=== PATIENT | male | born 1970 | race Two or more races ===

== ENCOUNTER 2020-03-22 08:35 | Outpatient (REF) | payer BC, SELFPAY ==
[2020-03-22 09:09] LABS: MANUAL DIFF FLAG NO
[2020-03-22 09:13] LABS: Basophils Percent Auto 0.6 % (0-2); Eosinophils Absolute Auto 0.3 X10*3/uL (0.0-0.4); Eosinophils Percent Auto 6.8 % (0-4); Hematocrit 44.5 % (42-52); Hemoglobin 14.5 g/dl (14.0-18.0); Imm Gran Abs Auto 0.01 X10*3/uL (0.00-0.03); Imm Gran Pct Auto 0.2 % (0.0-0.4); Lymphocytes Absolute Auto 1.5 X10*3/uL (1.2-4.9); Lymphocytes Percent Auto 30.8 % (20-40); Mean Corpuscular HGB Conc 32.6 g/dl (31.0-36.0); Mean Corpuscular Hemoglobin 27.2 pg (27.0-33.0); Mean Corpuscular Volume 83.3 fL (80-98); Mean Platelet Volume 9.9 fL (9.4-12.4); Monocytes Absolute Auto 0.4 X10*3/uL (0.1-1.2); Monocytes Percent Auto 7.4 % (2-11); Neutrophils Absolute Auto 2.7 X10*3/uL (2.0-8.3); Neutrophils Percent Auto 54.2 % (45-73); Platelet Count 253 X10*3/uL (160-400); Red Blood Count 5.34 X10*6/uL (4.60-5.80); Red Cell Distribution Width 12.9 % (11.0-16.0)
[2020-03-22 09:14] LABS: Glucose Urine UA NEG (NEG); Leukocyte Esterase Urine NEG (NEG); Nitrite Urine NEG (NEG); Specific Gravity - Urine 1.025 (1.005-1.025); Urine Blood NEG (NEG); Urine Ketones NEG (NEG); Urine Protein NEG (NEG-TRACE)
[2020-03-22 09:16] LABS: Appearance Urine CLEAR; Color Urine YELLOW
[2020-03-22 09:36] LABS: Alanine Aminotransferase 34 U/L (0-40); Albumin Level 4.1 g/dL (3.5-5.0); Alkaline Phosphatase 47 U/L (39-117); Anion Gap 10 (12-20); Aspartate Amino Transferase 40 U/L (5-37); Bilirubin Total 0.5 mg/dL (0.0-1.0); Blood Urea Nitrogen 27 mg/dL (9-16); Calcium 8.8 mg/dL (8.4-10.2); Carbon Dioxide 28 mmol/L (22-29); Chloride 104 mmol/L (96-108); Cholesterol 208 mg/dL; Estimated Glomerular Filt Rate 58; Glucose Fasting 95 mg/dL (60-99); HDL Cholesterol 72 mg/dL; LDL Cholesterol Calculated 118 mg/dl; Potassium 4.4 mmol/L (3.3-5.1); Sodium 138 mmol/L (135-145); Total Protein 7.2 g/dL (6.5-8.0); Triglycerides 90 mg/dL
[2020-03-22 09:57] LABS: TSH reflex Free T4 1.73 uIU/mL (0.32-4.0)
[2020-03-27 17:36] LABS: Testosterone, Total 667 ng/dL (250-1100)
== END 2020-03-22 08:36 | disposition home or self-care (01) ==
LOC: HO.LAB 08:35
PROVIDERS: PCP Internal Medicine; Visit Provider Internal Medicine
DX: Z00.00 Encounter for general adult medical examination without abnormal findings (principal); E78.00 Pure hypercholesterolemia, unspecified; R79.89 Other specified abnormal findings of blood chemistry; E66.3 Overweight; N52.9 Male erectile dysfunction, unspecified
CPT/HCPCS: 36415; 80053; 80061; 81003; 84153; 84403; 84443; 85025

== ENCOUNTER 2021-03-31 08:00 | Outpatient (REF) | payer BC, SELFPAY ==
[2021-03-31 08:33] LABS: MANUAL DIFF FLAG NO
[2021-03-31 09:04] LABS: Basophils Percent Auto 0.9 % (0-2); Eosinophils Absolute Auto 0.3 X10*3/uL (0.0-0.4); Eosinophils Percent Auto 6.2 % (0-4); Hematocrit 44.1 % (42.0-52.0); Hemoglobin 14.5 g/dl (14.0-18.0); Imm Gran Abs Auto 0.01 X10*3/uL (0.00-0.03); Imm Gran Pct Auto 0.2 % (0.0-0.4); Lymphocytes Absolute Auto 1.2 X10*3/uL (1.2-4.9); Lymphocytes Percent Auto 28.6 % (20-40); Mean Corpuscular HGB Conc 32.9 g/dl (31.0-36.0); Mean Corpuscular Hemoglobin 27.1 pg (27.0-33.0); Mean Corpuscular Volume 82.4 fL (80.0-98.0); Mean Platelet Volume 10.1 fL (9.4-12.4); Monocytes Absolute Auto 0.4 X10*3/uL (0.1-1.2); Monocytes Percent Auto 8.3 % (2-11); Neutrophils Absolute Auto 2.4 x10*3/uL (2.0-8.3); Neutrophils Percent Auto 55.8 % (45-73); Platelet Count 243 X10*3/uL (160-400); Red Blood Count 5.35 X10*6/uL (4.60-5.80); Red Cell Distribution Width 12.9 % (11.0-16.0); White Blood Count 4.3 X10*3/uL (4.8-10.8)
[2021-03-31 09:08] LABS: Appearance Urine CLEAR; Color Urine YELLOW; Glucose Urine UA NEG (NEG); Leukocyte Esterase Urine NEG (NEG); Nitrite Urine NEG (NEG); PH 5.5 (5.0-8.0); Specific Gravity - Urine >= 1.030 (1.005-1.025); Urine Blood NEG (NEG); Urine Ketones NEG (NEG); Urine Protein NEG (NEG-TRACE)
[2021-03-31 09:34] LABS: Alanine Aminotransferase 36 U/L (0-40); Albumin Level 4.2 g/dL (3.5-5.0); Alkaline Phosphatase 51 U/L (39-117); Anion Gap 11 (12-20); Aspartate Amino Transferase 41 U/L (5-37); Bilirubin Total 0.9 mg/dL (0.0-1.0); Blood Urea Nitrogen 22 mg/dL (9-16); Calcium 9.1 mg/dL (8.4-10.2); Carbon Dioxide 27 mmol/L (22-29); Chloride 104 mmol/L (96-108); Cholesterol 173 mg/dL; Estimated Glomerular Filt Rate 59; Glucose Fasting 90 mg/dL (60-99); HDL Cholesterol 63 mg/dL; LDL Cholesterol Calculated 98 mg/dl; Potassium 4.5 mmol/L (3.3-5.1); Sodium 137 mmol/L (135-145); Total Protein 7.4 g/dL (6.5-8.0); Triglycerides 61 mg/dL
[2021-03-31 09:55] LABS: Prostate Specific Antigen Scr 0.54 ng/mL (<0.05-4.0); TSH reflex Free T4 1.37 uIU/mL (0.32-4.0); Vitamin D 25-OH Total 48.8 ng/mL (>30)
== END 2021-03-31 08:01 | disposition home or self-care (01) ==
LOC: HO.LAB 08:00
PROVIDERS: PCP Internal Medicine; Visit Provider Internal Medicine
DX: Z00.00 Encounter for general adult medical examination without abnormal findings (principal); Z12.5 Encounter for screening for malignant neoplasm of prostate; E78.00 Pure hypercholesterolemia, unspecified; E66.3 Overweight; E55.9 Vitamin D deficiency, unspecified
CPT/HCPCS: 36415; 80053; 80061; 81003; 82306; 84153; 84443; 85025

== ENCOUNTER 2022-03-25 09:28 | Outpatient (REF) | payer BC, SELFPAY ==
[2022-03-25 09:40] LABS: MANUAL DIFF FLAG NO
[2022-03-25 10:05] LABS: Appearance Urine Clear; Color Urine Yellow; Glucose Urine UA Negative (Negative); Leukocyte Esterase Urine Negative (Negative); Nitrite Urine Negative (Negative); PH 7.5 (5.0-9.0); Urine Blood Negative (Negative); Urine Ketones Negative (Negative); Urine Protein Negative (Neg-Trace)
[2022-03-25 10:07] LABS: Basophils Absolute Auto 0.1 X10*3/uL (0.0-0.2); Eosinophils Absolute Auto 0.5 X10*3/uL (0.0-0.4); Eosinophils Percent Auto 8.6 % (0-4); Hematocrit 45.8 % (42.0-52.0); Hemoglobin 14.7 g/dl (14.0-18.0); Imm Gran Abs Auto 0.02 X10*3/uL (0.00-0.03); Imm Gran Pct Auto 0.3 % (0.0-0.4); Lymphocytes Absolute Auto 1.5 X10*3/uL (1.2-4.9); Lymphocytes Percent Auto 24.4 % (20-40); Mean Corpuscular HGB Conc 32.1 g/dl (31.0-36.0); Mean Corpuscular Hemoglobin 26.6 pg (27.0-33.0); Mean Platelet Volume 9.8 fL (9.4-12.4); Monocytes Absolute Auto 0.4 X10*3/uL (0.1-1.2); Monocytes Percent Auto 7.4 % (2-11); Neutrophils Absolute Auto 3.5 x10*3/uL (2.0-8.3); Neutrophils Percent Auto 58.3 % (45-73); Platelet Count 280 X10*3/uL (160-400); Red Blood Count 5.52 X10*6/uL (4.60-5.80); Red Cell Distribution Width 12.8 % (11.0-16.0); White Blood Count 5.9 X10*3/uL (4.8-10.8)
[2022-03-25 10:39] LABS: Alanine Aminotransferase 39 U/L (0-40); Albumin Level 4.1 g/dL (3.5-5.0); Alkaline Phosphatase 57 U/L (39-117); Anion Gap 11 (12-20); Aspartate Amino Transferase 38 U/L (5-37); Bilirubin Total 0.5 mg/dL (0.0-1.0); Blood Urea Nitrogen 21 mg/dL (9-16); Calcium 9.1 mg/dL (8.4-10.2); Carbon Dioxide 27 mmol/L (22-29); Chloride 104 mmol/L (96-108); Cholesterol 215 mg/dL; Estimated Glomerular Filt Rate > 60; Glucose Fasting 91 mg/dL (60-99); HDL Cholesterol 59 mg/dL; LDL Cholesterol Calculated 122 mg/dl; Potassium 4.6 mmol/L (3.3-5.1); Sodium 137 mmol/L (135-145); Total Protein 7.2 g/dL (6.5-8.0); Triglycerides 171 mg/dL
[2022-03-25 10:57] LABS: Prostate Specific Antigen 0.74 ng/mL (<0.05-4.0); TSH reflex Free T4 1.12 uIU/mL (0.32-4.0); Vitamin D 25-OH Total 40.9 ng/mL (>30)
== END 2022-03-25 09:29 | disposition home or self-care (01) ==
LOC: HO.LAB 09:28
PROVIDERS: PCP Internal Medicine; Visit Provider Internal Medicine
DX: Z00.00 Encounter for general adult medical examination without abnormal findings (principal); Z12.5 Encounter for screening for malignant neoplasm of prostate; R30.0 Dysuria; N40.0 Benign prostatic hyperplasia without lower urinary tract symptoms; E78.00 Pure hypercholesterolemia, unspecified; E55.9 Vitamin D deficiency, unspecified; R79.89 Other specified abnormal findings of blood chemistry
CPT/HCPCS: 36415; 80053; 80061; 81003; 82306; 84153; 84443; 85025

== ENCOUNTER → 2022-05-22 12:00 | Outpatient (BNVA) | payer BC, SELFPAY | PROVIDERS: PCP Internal Medicine; Visit Provider Nurse Practitioner | DX: Z13.89 Encounter for screening for other disorder (principal) ==

== ENCOUNTER 2022-05-25 16:03 | Emergency (ER) | payer BC, SELFPAY ==
--- NOTE | ~2022-05-25 | CT_ITS ---
EXAMINATION: CT HEAD WITHOUT CONTRAST CLINICAL INFORMATION: Ocular headaches COMPARISON: None available. TECHNIQUE: Contiguous axial imaging was performed from the skull base to vertex without intravenous administration of contrast. This CT examination was performed using dose optimization techniques as appropriate, variously including the following: *Automated exposure control *Adjustment of mA and/or kV according to patient size (this includes techniques or standardized protocols for targeted exams where dose is matched to indication/reason for exam; i.e. extremities or head) *Use of iterative reconstruction technique DLP: 633 mGy-cm FINDINGS: There is no evidence of acute intracranial hemorrhage or territorial infarction. No abnormal mass effect or midline shift is seen. Glaser to white matter differentiation is well preserved. No extra-axial fluid collections are identified. The ventricles are normal in size. No abnormal attenuation in the brain parenchyma. No acute calvarial fracture.. Complete right frontal sinus opacification.. Partial opacification left frontal sinus. Prominent opacification of the right greater than left ethmoid sinus. Right maxillary sinus mucosal thickening. Right sphenoid sinus mucosal thickening.. Mastoid air cells are well-aerated. CT/CT head/brain wo IV con IMPRESSION: No CT evidence of acute intracranial hemorrhage or edematous territorial infarction. Extensive sinus disease as detailed above.
--- NOTE | 2022-05-25 16:17 | ED_ITS ---
HPI - Headache General Chief Complaint: Headache <JOHNATHON Andrews - Last Filed: 05/25/22 16:21> Stated Complaint: migraine <JOHNATHON Andrews - Last Filed: 05/25/22 16:21> Time Seen by Provider: 05/25/22 20:30 <JOHNATHON Andrews - Last Filed: 05/25/22 16:21> Source: patient <Garima Reese MD - Last Filed: 05/25/22 22:36> Mode of arrival: ambulatory <Garima Reese MD - Last Filed: 05/25/22 22:36> Limitations: no limitations <Garima Reese MD - Last Filed: 05/25/22 22:36> History of Present Illness HPI Narrative: Patient comes to the emergency room complaining of right-sided headache intermittently for about a 3 weeks. Patient states that when he takes Excedrin, he does have pain relief, but shortly after the medication wears off, he starts having headaches again. Patient denies blurred vision, no neurological deficits. No nausea vomiting, no neck pain or rigidity. Denies recent URI symptoms <Garima Reese MD - Last Filed: 05/25/22 22:36> Related Data Home Medications: Home Medications Medication Instructions Recorded Confirmed [id number]-amikqotgnckgz-[id number] 250 1 tab PO Q4-6H PRN 05/22/22 mg-250 mg-65 mg tablet (Excedrin Extra Strength) Previous Rx's Medication Instructions Recorded peg 3350-electrolytes 236 240 ml PO Q10M 1 day #4,000 mL 05/22/22 gram-22.74 gram-6.74 gram-5.86 gram solution (Golytely) ketorolac 10 mg tablet 10 mg PO TID PRN pain 5 days #10 05/25/22 tabs metoclopramide HCl 5 mg tablet 5 mg PO .T.i.d. PRN nausea and 05/25/22 (Reglan) vomiting #10 tabs <JOHNATHON Andrews - Last Filed: 05/25/22 16:21> Allergies/Adverse Reactions: Allergies Allergy/AdvReac Type Severity Reaction Status Date / Time No Known Allergies Allergy Verified 05/22/22 12:34 <JOHNATHON Andrews - Last Filed: 05/25/22 16:21> Review of Systems Review of Systems: Constitutional : No Weight loss, No Fever, No Chills, No Night Sweats, No Fatigue, No Malaise ENT/Mouth : No Hearing loss, No Ear Pain, No Nasal Congestion, No Sinus Pain, No Hoarseness, No sore throat, No Rhinorrhea, No Swallowing Difficulty Eyes: No Eye Pain, No Swelling, No Redness, No Foreign Body, No Discharge, No Vision Changes Cardiovascular : No Chest Pain, No SOB, No Dyspnea on Exertion, No Orthopnea, No Edema, No Palpitations Respiratory : No Cough, No Sputum, No Wheezing, No Smoke Exposure, No Dyspnea Gastrointestinal : No Nausea, No Vomiting, No Diarrhea, No Constipation, No abdominal Pain, No Hematochezia, No Melena Genitourinary : no irregular bleeding, No Dysuria, No Urinary Frequency, No Hematuria, No Urinary Incontinence, No Urgency, No Flank Pain, No Urinary Flow Changes, No Hesitancy Musculoskeletal : No joint pain, No Myalgias, No Joint Swelling Skin : No Skin Lesions, No rash Neuro : No Weakness, No Numbness, No Paresthesias, No Loss of Consciousness, No Dizziness, blaming of intermittent headache for 3 weeks, responds well to Excedrin Psych : No Anxiety/Panic, No Depression, No SI/HI/AH/VH, No Social Issues, Heme/Lymph: No Bruising, No Bleeding,No Lymphadenopathy Endocrine : No Polyuria, No Polydipsia, No Temperature Intolerance <Garima Reese MD - Last Filed: 05/25/22 22:36> [facility] Past Medical History Medical History: Medical History Elevated LFTs Erectile dysfunction Insomnia Overweight (BMI 25.0-29.9) Pure hypercholesterolemia Vitamin D deficiency <JOHNATHON Andrews - Last Filed: 05/25/22 16:21> Surgical History: Surgical History No significant past surgical history <JOHNATHON Andrews - Last Filed: 05/25/22 16:21> Family History Family History: Family History Mother Hypertension <JOHNATHON Andrews - Last Filed: 05/25/22 16:21> Social History Social History: Social History Housing: House Alcohol intake: current Alcohol intake frequency: a few times a week Patient Tobacco Use Status: Never used Tobacco Smoked in Last 30 Days: No e-Cigarette/Vaping Use: Never Used Second Hand Smoke Exposure: No Use of substances other than those prescribed or required for medical reasons: No Advance Directives: No Advance Directives Information Provided: No service: No Current occupational status: employed Cognitive needs: No Hearing needs: No Vision needs: Yes <JOHNATHON Andrews - Last Filed: 05/25/22 16:21> Physical Exam Vital Signs: Vital Signs: Last Vital Signs Temp 97.8 F 05/25/22 21:59 Pulse 55 05/25/22 21:59 Resp 12 05/25/22 21:59 BP 122/48 L 05/25/22 21:59 Pulse Ox 97 05/25/22 21:59 O2 Del Method Room Air 05/25/22 21:59 BMI result Body Mass Index 26.6 <JOHANTHON Andrews - Last Filed: 05/25/22 16:21> Vital Signs: Last Vital Signs Temp 97.8 F 05/25/22 21:59 Pulse 55 05/25/22 21:59 Resp 12 05/25/22 21:59 BP 122/48 L 05/25/22 21:59 Pulse Ox 97 05/25/22 21:59 O2 Del Method Room Air 05/25/22 21:59 BMI result Body Mass Index 26.6 <Garima Reese MD - Last Filed: 05/25/22 22:36> Const: Other: Appearance: Alert. Oriented X3. No acute distress. Eyes: Pupils equal, round and reactive to light. ENT: Pharynx normal. Neck: Normal inspection. Neck supple. No lymph nodes noted. No crepitus CVS: Normal heart rate and rhythm. Pulses normal. Normal S1 and S2 Respiratory: No respiratory distress. Breath sounds normal. No Wheezing. No rales Abdomen: Soft and nontender. No rigidity. No distention. Skin: Skin warm and dry. Normal skin color. Normal skin turgor. Extremities: No lower extremity edema. No Lacerations. No Rash Neuro: Oriented X 3. No motor deficit. No sensory deficit. Moving all extremities. No slurred speech. CN 2 through 12 grossly intact Psych: calm, cooperative, normal affect <Garima Reese MD - Last Filed: 05/25/22 22:36> Course Course Course Narrative: RME - 51yo male with no known medical problems presenting for right-sided headaches for the past three weeks. Endorses vomiting, blurry vision. Stated he's been taking excedrin with mild relief for short periods of time. last time he took the excedrin was 1200 today. plan: CT <JOHNATHON Andrews - Last Filed: 05/25/22 16:21> Medications Administered Discontinued Medications Generic Name Dose Route Start Last Admin Trade Name Freq PRN Reason Stop Dose Admin Diphenhydramine HCl 25 mg 05/25/22 21:02 05/25/22 21:17 Diphenhydramine Hcl 50 Mg/Ml Vial IVPUSH 05/25/22 21:03 25 mg ONCE ONE Administration Sodium Chloride 1,000 mls @ 999 mls/hr 05/25/22 21:02 05/25/22 21:19 Ns IVCONT 05/25/22 22:02 999 mls/hr .Q1H1M ONE Administration Ketorolac Tromethamine 30 mg 05/25/22 21:02 05/25/22 21:18 Ketorolac Tromethamine 30 Mg/Ml Vial IVPUSH 05/25/22 21:03 30 mg ONCE ONE Administration Metoclopramide HCl 10 mg 05/25/22 21:03 05/25/22 21:17 Metoclopramide Hcl 10 Mg/2 Ml Vial IVPUSH 05/25/22 21:04 10 mg ONCE ONE Administration <JOHNATHON Andrews - Last Filed: 05/25/22 16:21> Medications Administered Discontinued Medications Generic Name Dose Route Start Last Admin Trade Name Freq PRN Reason Stop Dose Admin Diphenhydramine HCl 25 mg 05/25/22 21:02 05/25/22 21:17 Diphenhydramine Hcl 50 Mg/Ml Vial IVPUSH 05/25/22 21:03 25 mg ONCE ONE Administration Sodium Chloride 1,000 mls @ 999 mls/hr 05/25/22 21:02 05/25/22 21:19 Ns IVCONT 05/25/22 22:02 999 mls/hr .Q1H1M ONE Administration Ketorolac Tromethamine 30 mg 05/25/22 21:02 05/25/22 21:18 Ketorolac Tromethamine 30 Mg/Ml Vial IVPUSH 05/25/22 21:03 30 mg ONCE ONE Administration Metoclopramide HCl 10 mg 05/25/22 21:03 05/25/22 21:17 Metoclopramide Hcl 10 Mg/2 Ml Vial IVPUSH 05/25/22 21:04 10 mg ONCE ONE Administration <Garima Reese MD - Last Filed: 05/25/22 22:36> Medical Decision Making Medical Decision Making MDM Narrative: -my interpretation of head CT, no intracranial bleed, no obvious deformity/mass -patient receiving IV fluids, IV Toradol, Reglan, Benadryl After IV cocktail treatment, patient states that he feels well. He is in his room, watching TV and seems comfortable. <Garima Reese MD - Last Filed: 05/25/22 22:36> Differential Diagnosis Differential Diagnoses: The differential diagnosis associated with the presentation includes (Tension headache, migraine headache, ocular migraine) <Garima Reese MD - Last Filed: 05/25/22 22:36> Radiology Impression Discussion of test interpretation with radiology: I have reviewed the radiologist's reading. <Garima Reese MD - Last Filed: 05/25/22 22:36> Radiologist Impression: FINDINGS: There is no evidence of acute intracranial hemorrhage or territorial infarction. No abnormal mass effect or midline shift is seen. Glsaer to white matter differentiation is well preserved. No extra-axial fluid collections are identified. The ventricles are normal in size. No abnormal attenuation in the brain parenchyma. No acute calvarial fracture.. Complete right frontal sinus opacification.. Partial opacification left frontal sinus. Prominent opacification of the right greater than left ethmoid sinus. Right maxillary sinus mucosal thickening. Right sphenoid sinus mucosal thickening.. Mastoid air cells are well-aerated. ? CT/CT head/brain wo IV con IMPRESSION: No CT evidence of acute intracranial hemorrhage or edematous territorial infarction. <Garima Reese MD - Last Filed: 05/25/22 22:36> Discharge Plan Discharge Clinical Impression: Migraine <JOHNATHON Andrews - Last Filed: 05/25/22 16:21> Patient Disposition: Home, Self-Care <JOHNATHON Andrews - Last Filed: 05/25/22 16:21> Instructions: Migraine Headache (ED) <JOHNATHON Andrews - Last Filed: 05/25/22 16:21> Additional Instructions: Please follow-up with your primary care physician tomorrow. If you have any worsening or new symptoms, please return to the emergency room or call 911 <JOHNATHON Andrews - Last Filed: 05/25/22 16:21> Prescriptions: New ketorolac 10 mg tablet 10 mg PO TID PRN (Reason: pain) 5 Days Qty: 10 0RF Rx Instructions: Do not use this medication with NSAIDs, use Tylenol if needed metoclopramide HCl [Reglan] 5 mg tablet 5 mg PO .T.i.d. PRN (Reason: nausea and vomiting) Qty: 10 0RF Rx Instructions: Take together with Toradol p.r.n. migraine No Action peg 3350-electrolytes [Golytely] 236-22.74-6.74 -5.86 gram recon soln 240 ml PO Q10M 1 Days Qty: 4000 0RF Rx Instructions: until fecal effluent is clear; do not exceed a total volume of 2,000 mL Excedrin Extra Strength 250-250-65 mg tablet 1 tab PO Q4-6H PRN <JOHNATHON Andrews - Last Filed: 05/25/22 16:21>
[2022-05-25 16:18] VITALS: BP 161/99; PULSE 82; RESP 18; TEMP 36.7; O2SAT 97; BMI 26.6
--- NOTE | 2022-05-25 20:41 | PC.NURSE ---
Patient has been managing headache at home for the past few weeks with excedrine migraine. Patient states that the medication helps take the pain away but as soon as the medication wears off the headache is just as intense as it was prior. Patient states the he took his excedrine in the waiting room. Upon exam patient is alert and oriented able to move all extremities, patient denies dizziness at this time.
[2022-05-25 20:57] VITALS: BP 144/99; PULSE 72; RESP 16; TEMP 36.8; O2SAT 99
[2022-05-25] MEDS: diphenhydrAMINE HCL 50 MG/ML VIAL 25 MG IVPUSH (21:17)
[2022-05-25] MEDS: Metoclopramide HCl 10 MG/2 ML VIAL IVPUSH (21:17)
[2022-05-25] MEDS: Ketorolac Tromethamine 30 MG/ML VIAL IVPUSH (21:18)
[2022-05-25] MEDS: 0.9 % Sodium Chloride 1,000 ML 999 ML IVCONT (21:19)
--- NOTE | 2022-05-25 21:24 | PC.NURSE ---
20 G IV line placed in L AC, patient medicated per APR. Patient reports frontal headache is improving and rating it as 7/10 on 0/10 pain scale. Call allen within patient's reach. Patient's spouse in at bedside.
[2022-05-25 21:53] VITALS: BP 106/65; PULSE 57; RESP 16; TEMP 36.4; O2SAT 97
[2022-05-25 21:59] VITALS: BP 122/48; PULSE 55; RESP 12; TEMP 36.6; O2SAT 97
--- NOTE | 2022-05-25 23:41 | PC.NURSE ---
Reviewed discharge instruction with pt, pt verbalized understanding, Notified Rn Jahaira.
== END 2022-05-25 23:42 | disposition home or self-care (01) ==
PROVIDERS: Emergency Provider Emergency Medicine; PCP Internal Medicine
DX: G43.909 Migraine, unspecified, not intractable, without status migrainosus (principal)
CPT/HCPCS: 70450; 96374; 96375; 99284; J1200; J1885; J2765

== ENCOUNTER 2022-05-28 10:06 | Outpatient (REF) | payer BC, SELFPAY ==
[2022-05-28 10:17] LABS: MANUAL DIFF FLAG NO
[2022-05-28 10:49] LABS: Basophils Percent Auto 0.7 % (0-2); Eosinophils Absolute Auto 0.3 X10*3/uL (0.0-0.4); Eosinophils Percent Auto 4.4 % (0-4); Hematocrit 42.8 % (42.0-52.0); Imm Gran Abs Auto 0.01 X10*3/uL (0.00-0.03); Imm Gran Pct Auto 0.2 % (0.0-0.4); Lymphocytes Absolute Auto 1.3 X10*3/uL (1.2-4.9); Lymphocytes Percent Auto 21.8 % (20-40); Mean Corpuscular HGB Conc 32.7 g/dl (31.0-36.0); Mean Corpuscular Hemoglobin 27.1 pg (27.0-33.0); Mean Corpuscular Volume 82.8 fL (80.0-98.0); Mean Platelet Volume 9.6 fL (9.4-12.4); Monocytes Absolute Auto 0.5 X10*3/uL (0.1-1.2); Monocytes Percent Auto 7.7 % (2-11); Neutrophils Absolute Auto 3.8 x10*3/uL (2.0-8.3); Neutrophils Percent Auto 65.2 % (45-73); Platelet Count 309 X10*3/uL (160-400); Red Blood Count 5.17 X10*6/uL (4.60-5.80); Red Cell Distribution Width 12.8 % (11.0-16.0); White Blood Count 5.9 X10*3/uL (4.8-10.8)
[2022-05-28 11:30] LABS: Alanine Aminotransferase 32 U/L (0-40); Alkaline Phosphatase 58 U/L (39-117); Anion Gap 10 (12-20); Aspartate Amino Transferase 30 U/L (5-37); Bilirubin Total 0.8 mg/dL (0.0-1.0); Blood Urea Nitrogen 19 mg/dL (9-16); Calcium 9.3 mg/dL (8.4-10.2); Carbon Dioxide 29 mmol/L (22-29); Chloride 105 mmol/L (96-108); Estimated Glomerular Filt Rate 59; Glucose Random 93 mg/dL (60-115); Potassium 4.9 mmol/L (3.3-5.1); Sodium 139 mmol/L (135-145); Total Protein 6.9 g/dL (6.5-8.0)
[2022-05-28 11:32] LABS: TSH reflex Free T4 1.43 uIU/mL (0.32-4.0)
[2022-05-28 11:47] LABS: Erythrocyte Sedimentation Rate 6 MM/HR (0-15)
[2022-06-02 06:08] LABS: Lyme Blot 1.83 index
[2022-06-03 11:33] LABS: Lyme Abs Screen POSITIVE
[2022-06-03 11:35] LABS: 18 KD (IgG) Band REACTIVE; 23 KD (IgG) Band NON-REACTIVE; 23 KD (IgM) Band NON-REACTIVE; 28 KD (IgG) Band NON-REACTIVE; 30 KD (IgG) Band NON-REACTIVE; 39 KD (IgM) Band NON-REACTIVE; 39KD (IgG) Band NON-REACTIVE; 41 KD (IgM) Band NON-REACTIVE; 41KD (IgG) Band NON-REACTIVE; 45 KD (IgG) Band NON-REACTIVE; 58 KD (IgG) Band NON-REACTIVE; 66 KD (IgG) Band NON-REACTIVE; 93 KD (IgG) Band NON-REACTIVE; Lyme IgG Blot Interp NEGATIVE (NEGATIVE); Lyme IgM Blot Interp NEGATIVE (NEGATIVE)
== END 2022-05-28 10:07 | disposition home or self-care (01) ==
LOC: HO.LAB 10:06
PROVIDERS: PCP Internal Medicine; Visit Provider Internal Medicine
DX: G89.29 Other chronic pain (principal); R51.9 Headache, unspecified; E66.3 Overweight; E78.5 Hyperlipidemia, unspecified
CPT/HCPCS: 36415; 80053; 84443; 85025; 85652; 86617; 86618

== ENCOUNTER 2022-09-22 09:50 | Outpatient (AMB) | payer BC, SELFPAY ==
[2022-09-22 09:52] VITALS: BP 122/80; PULSE 74; O2SAT 98; BMI 26.2
--- NOTE | 2022-09-22 09:52 | MHC.PC.OV ---
Vital Signs 09/22/22 09:52 Height 5 ft 9 in Weight 177 lb 8 oz BMI 26.2 BP 122/80 Blood Pressure Location Lt brachial Position Sitting Pulse 74 Pulse Source Pulse Oximeter Pulse Oximetry (%) 98 Oxygen Delivery Method Room Air Intake Visit Reasons: 6m F/U elevated LFTs, hyperlipidemia Shipping And Receiving Coordinator Required: No Accompanied by: Self / Same As Patient Allergies No Known Allergies Allergy (Verified 09/22/22 10:12) Medication List - Last Reconciled 09/22/22 by David Haas MD amitriptyline 25 mg PO BEDTIME 30 days rxnsjky-pniqncnhmwlbl-fnblrjyq 250-250-65 mg (Excedrin Extra Strength) 1 tab PO Q4-6H PRN ketorolac 10 mg PO TID PRN 5 days metoclopramide HCl (Reglan) 5 mg PO .T.i.d. PRN peg 3350-electrolytes 236-22.74-6.74 -5.86 gram (Golytely) 240 mL PO Q10M 1 day Tobacco use date assessed: 09/22/22 Dental Screening Dental Screen Date: 09/22/22 Did you have a dental visit in the last 12 months?: No Did you have a dental problem in the last 6 months where you did not have access to dental care?: No Was dental information given to patient?: No HPI 6m F/U elevated LFTs, hyperlipidemia HPI Details Patient comes in today for his follow up visit States that he feels okay He denies any headaches or dizziness - states that his previous recurrent right-sided headaches have subsided and have not recurred in a while now He denies any chest pains, no SOB No nausea/vomiting, no abdominal pain No change in bowel habits noted Was not able to get his follow up labs done prior to his visit today although he recalls getting some labs done the day after his last visit - would like to know how those came out Would like to get some labs ordered for STD testing - he denies any penile discharge or acute symptoms Adds that he has noticed a dark skin lesion near the tip of his genital a few weeks ago and would like to see dermatology to get this checked out for concerns that it may be a cancerous lesion [facility] Medical History Elevated LFTs Erectile dysfunction Insomnia Overweight (BMI 25.0-29.9) Pure hypercholesterolemia Vitamin D deficiency Surgical History No significant past surgical history Family History Mother Hypertension Social History Housing: House Alcohol intake: current Alcohol intake frequency: a few times a week Patient Tobacco Use Status: Never used Tobacco e-Cigarette/Vaping Use: Never Used Second Hand Smoke Exposure: No service: No Current occupational status: employed Cognitive needs: No Hearing needs: No Vision needs: Yes Questionnaire PHQ-9 Over the last 2 weeks, how often have you been bothered by any of the following problems? 1. Little interest or pleasure in doing things: not at all 2. Feeling down, depressed, or hopeless: not at all 3. Trouble falling or staying asleep, or sleeping too much: not at all 4. Feeling tired or having little energy: not at all 5. Poor appetite or overeating: not at all 6. Feeling bad about yourself - or that you are a failure or have let yourself or your family down: not at all 7. Trouble concentrating on things, such as reading the newspaper or watching television: not at all 8. Moving or speaking so slowly that other people could have noticed. Or the opposite - being so fidgety or restless that you have been moving around a lot more than usual: not at all 9. Thoughts that you would be better off or of hurting yourself in some way: not at all Total score: 0 Depression Screening Interpretation: Negative 36767 - PHQ-9 Billing: Yes Source: Developed by Drs. Marcello Giraldo, Zoya Casas, Jose Maria Calderon and colleagues, with an educational angelika from [employer]. Thrive Questionnaire Date Thrive assessed: 09/22/22 I am a: Patient What is your living situation today?: I have a steady place to live Within the past 12 months, did the food you bought not last and you didn't have the money to get more?: Never true Within the past 12 months, did you worry whether your food would run out before you got money to buy more?: Never true Do you have trouble paying for medicines?: No Do you have trouble getting transportation to medical appointments?: No Do you have trouble paying your heating and electricity bill?: No Do you have trouble taking care of your child, family member or friend?: No Do you have trouble with day-to-day activities such as bathing, preparing meals, shopping, managing finances, etc.?: No Are you currently unemployed and looking for a job?: No Are you interested in more education?: No Please select the resources that you would like help with: None Currently or been in a relationship where the following occur: no concerns reported AUDIT C Alcohol Use Questionnaire (AUDIT-C) 1. How often do you have a drink containing alcohol?: 2-4 times a month 2. How many drinks containing alcohol do you have on a typical day when you are drinking?: 1 or 2 3. How often do you have six or more drinks on one occasion?: Never Total Score: 2 Score Reviewed/Action Taken: Yes LYDIA-7 AMB Questionnaire LYDIA-7 Date LYDIA - 7 assessed: 09/22/22 Feeling nervous, anxious, or on edge: 0 = Not at all Not being able to stop or control worryin = Not at all Worrying too much about different things: 0 = Not at all Trouble relaxin = Not at all Being so restless that it is hard to sit still: 0 = Not at all Becoming easily annoyed or irritable: 0 = Not at all Feeling afraid as if something awful might happen: 0 = Not at all Total LYDIA-7 score (0-4 normal; 5-9 mild; 10-14 moderate; 15-21 severe): 0 Source: Developed by Drs. Marcello Giraldo, Zoya Casas, Jose Maria Calderon and colleagues, with an educational angelika from [employer]. Review of Systems Const Denies fatigue, Denies fever(s) and Denies headache(s) ENT Denies dysphagia, Denies dizziness, Denies otalgia, Denies headache(s), Denies neck pain, Denies odynophagia and Denies sore throat Card Denies chest pain, Denies irregular heart rhythm, Denies palpitations and Denies dyspnea Resp Denies cough, Denies dyspnea and Denies wheezing GI Denies abdominal pain, Denies constipation, Denies dysphagia, Denies heartburn, Denies diarrhea, Denies nausea, Denies odynophagia and Denies vomiting Denies dysuria, Denies nocturia, Denies penile discharge, Denies urinary frequency and Denies urinary urgency Musc Denies back pain, Denies arthralgias and Denies neck pain Skin/Breast Details: (+) small dark skin lesion on his genital - see HPI Denies rash Neuro Denies dizziness, Denies headache(s) and Denies paresthesias Endo Denies fatigue and Denies palpitations Aller/Immun Denies wheezing Physical exam (Primary Care) Vital Signs: Last Vital Signs Pulse 74 09/22/22 09:52 BP 122/80 09/22/22 09:52 Pulse Ox 98 09/22/22 09:52 Oxygen Delivery Method Room Air 09/22/22 09:52 BMI result Body Mass Index 26.2 Tobacco/Smoking Status: Tobacco use Status Tobacco use date assessed 09/22/22 09/22/22 09:59 Patient Tobacco Use Status Never used Tobacco 09/22/22 09:59 e-Cigarette/Vaping Use Never Used 09/22/22 09:59 PHQ-9: PHQ-9 Score PHQ-9: Total score 0 09/22/22 09:59 Depression Screening Interpretation: Negative Thrive Assessment: Date of Thrive Assessment Date Thrive assessed 09/22/22 09/22/22 09:59 Currently or been in a relationship where the following occur: no concerns reported Const General: no acute distress and alert HENMT Ears: TM's normal bilaterally and EAC's normal Throat: Yes posterior oropharynx normal and Yes tonsils normal (no TP congestion) Neck Neck: Yes no lymphadenopathy and Yes supple Resp Auscultation: clear to auscultation bilaterally, no rales and no wheezes Cardio Rate: regular rate Rhythm: regular rhythm Heart sounds: no murmurs GI Palpation (GI): Soft to palpation, nontender and No hepatosplenomegaly present Other: (+) small hyperpigmented, flat lesion near the glans penis Back/Spine/Pelvis Thoracic/Lumbar Spine: thoracic and lumbar spine normal to inspection Skin General skin exam: no rashes or lesions noted Extrem General: Yes no clubbing, cyanosis or edema Results Reviewed Results Reviewed: Laboratory Tests 05/28/22 05/28/22 10:16 10:16 WBC 5.9 Hgb 14.0 Hct 42.8 Plt Count 309 Sodium 139 Potassium 4.9 Creatinine 1.28 Estimated GFR 59 Random Glucose 93 Calcium 9.3 AST 30 ALT 32 Assessment and Plan Assessment & Plan (1) Pure hypercholesterolemia: Code(s): E78.00 - Pure hypercholesterolemia, unspecified Plan: Results of his labs done a few months ago reviewed and discussed with patient - advised that his labs done back in May 2022 were non-fasting and did not include his cholesterol levels although his numbers abck in March 2022 were much higher than they were last year Reinforced low cholesterol diet - low cholesterol diet info provided Will have patient recheck his fasting lipids and labs in 4 months for follow up (2) Elevated LFTs: Code(s): R79.89 - Other specified abnormal findings of blood chemistry Plan: LFTs (serum AST) were still slightly elevated on his labs done last year and in March 2022 but were normal on his labs done in May 2022 - are most likely related to his weight Will recheck his LFTs in 4 months for follow up (3) Chronic right-sided headaches: Code(s): R51.9 - Headache, unspecified; G89.29 - Other chronic pain Plan: Better controlled lately Continue Amitriptyline 25 mg Q HS and OTC Excedrin PRN Follow up with neurology as scheduled (4) Hyperpigmented skin lesion: Comment: on the genital area Code(s): L81.9 - Disorder of pigmentation, unspecified Plan: Per request, will refer him to dermatology for further evaluation and management (5) Possible exposure to STD: Code(s): Z20.2 - Contact with and (suspected) exposure to infections with a predominantly sexual mode of transmission Plan: Per request, will send patient to the lab for STD testing (6) Overweight (BMI 25.0-29.9): Code(s): E66.3 - Overweight Plan: Reinforced diet/exercise as tolerated/lose weight Plan Follow up in 4 months Orders: Orders Hepatitis B,C Profile Today Z20.2 - Contact with and (suspected) exposure to infections with a predominantly sexual mode of transmission HIV Ab/Ag Today Z20.2 - Contact with and (suspected) exposure to infections with a predominantly sexual mode of transmission Syphilis Screen Today Z20.2 - Contact with and (suspected) exposure to infections with a predominantly sexual mode of transmission Comprehensive [place]. Panel Fast 4 Months E78.00 - Pure hypercholesterolemia, unspecified Lipid Panel 4 Months E78.00 - Pure hypercholesterolemia, unspecified TSH reflex Free T4 4 Months E78.00 - Pure hypercholesterolemia, unspecified UA CC w/rflx Micro + Cult 4 Months R30.0 - Dysuria CT NG by PCR Today Z20.2 - Contact with and (suspected) exposure to infections with a predominantly sexual mode of transmission Referrals Dermatology Referral L81.9 - Disorder of pigmentation, unspecified Coding Level of Care Code Est Pt Level 4 (75481) Diagnoses Pure hypercholesterolemia E78.00 Elevated LFTs R79.89 Chronic right-sided headaches R51.9; G89.29 Hyperpigmented skin lesion L81.9 Possible exposure to STD Z20.2 Overweight (BMI 25.0-29.9) E66.3
== END 2022-09-22 10:26 | disposition home or self-care (01) ==
PROVIDERS: PCP Internal Medicine; Visit Provider Internal Medicine
DX: E78.00 Pure hypercholesterolemia, unspecified (principal); R79.89 Other specified abnormal findings of blood chemistry; R51.9 Headache, unspecified; G89.29 Other chronic pain; L81.9 Disorder of pigmentation, unspecified; Z20.2 Contact with and (suspected) exposure to infections with a predominantly sexual mode of transmission; E66.3 Overweight
CPT/HCPCS: 99214

== ENCOUNTER 2022-12-21 10:58 | Day surgery (SDC) | payer BC, SELFPAY ==
[2022-12-21 11:07] VITALS: BMI 26.7
[2022-12-21] MEDS: Lactated Ringers 1,000 ML 50 ML IVCONT (11:22)
[2022-12-21 11:29] VITALS: BP 128/85; PULSE 79; RESP 18; TEMP 36.7; O2SAT 99
--- NOTE | 2022-12-21 11:32 | HO.ANESPROP2 ---
[facility] Active Problems Active Problems: All Active Problems (Updated 09/22/22 @ 10:36 by David Haas MD) Possible exposure to STD (Acute) Hyperpigmented skin lesion (Acute) Pre-op examination (Acute) Chronic right-sided headaches (Acute) Colon cancer screening (Acute) Annual physical exam (Acute) Insomnia (Acute) Overweight (BMI 25.0-29.9) (Acute) Vitamin D deficiency (Acute) Elevated LFTs (Acute) Pure hypercholesterolemia (Acute) Erectile dysfunction (Acute) Past Medical History Medical History Elevated LFTs Erectile dysfunction Insomnia Overweight (BMI 25.0-29.9) Pure hypercholesterolemia Vitamin D deficiency Family History Family History Mother Hypertension Family history of problems with anesthesia: No Surgical History Surgical History No significant past surgical history History of Problems with Anesthesia: No Social History Social History Housing: House Alcohol intake: current Alcohol intake frequency: a few times a week Patient Tobacco Use Status: Never used Tobacco e-Cigarette/Vaping Use: Never Used Second Hand Smoke Exposure: No Are you DNR?: No Advance Directives: No Advance Directives Information Provided: Yes Nutrition Risks: No Nutritional Risk service: No Current occupational status: employed Cognitive needs: No Hearing needs: No Vision needs: Yes Meds Allergies Allergy/AdvReac Type Severity Reaction Status Date / Time No Known Allergies Allergy Verified 12/21/22 11:29 Active Medications: Current Medications Lactated Ringer's (Lr) 1,000 mls @ 50 mls/hr IVCONT .Q20H MEGHANN Last Admin: 12/21/22 11:22 Dose: 50 mls/hr Lactated Ringer's (Lr) 1,000 mls @ 50 mls/hr IVCONT .Q20H MEGHANN Home Medications Medication Instructions Recorded Confirmed Last Taken Type No Known Home Meds 12/21/22 12/21/22 Unknown History Exam Exam Date and Time: December 21, 2022 1132 Height,Weight and Vital Signs: Height 5 ft 9 in Weight 82.1 kg Last Vital Signs Temp 98.0 F 12/21/22 11:29 Pulse 79 12/21/22 11:29 Resp 18 12/21/22 11:29 BP 128/85 12/21/22 11:29 Pulse Ox 99 12/21/22 11:29 O2 Del Method Room Air 12/21/22 11:29 Airway Mallampati Class: II (missing a couple ) TM Dist: >3cm Neck ROM: Full Heart: rrr Lungs: cta Assessment and Plan Assessment Anesthesia Assessment: Anesthesia Plan Discussed and Chart Reviewed Final Anesthetic Review Family History of Problems with Anesthesia: No History of Problems with Anesthesia: No NPO: Yes ASA Class: II Final Preanesthetic Review: No Changes in Pt Med Stat, Meds/Allgs Chart Reviewed and Consent Obtained/Reviewed Patient Risk: Intermediate Procedure Risk: Intermediate Anesthetic Plan Anesthetic Plan: MAC: Disposition: Standard PACU
--- NOTE | 2022-12-21 11:40 | MHC.SHP ---
Pre-Procedural Eval Section A Date of Service: 12/21/22 Section B Chief Complaint: screening Relevant Family History (Specify if Yes): No Relevant Social History: None Present Medications: see Short Stay Collaborative assessment Medical History: Significant History (Elevated LFTs Erectile dysfunction Insomnia Overweight (BMI 25.0-29.9) Pure hypercholesterolemia Vitamin D deficiency) History of Previous Operations: No relevant previous surgery Allergies: Allergies Allergy/AdvReac Type Severity Reaction Status Date / Time No Known Allergies Allergy Verified 12/21/22 11:29 Review of Systems Sugical H&P ROS: Negative: Constitution, Cardiovascular, Respiratory and Gastrointestinal Exam Surgical H&P Exam: Normal: Heart, Normal: Lungs, Normal: Extremities and Normal: Abdomen Plan Diagnosis/Plan: Unchanged I have reviewed the history and physical and performed a pertinent physical examination on my patient. No changes have occurred unless specified. Time Spent With Patient Time: Total time managing care of this patient today ____ minutes.
--- NOTE | 2022-12-21 12:46 | W.PM.OPN ---
Operative Note Operative Note Date of Service: 12/21/22 Narrative: COLONOSCOPY TILL CECUM WITH BIOPSIES Pre-op diagnosis: Colon cancer screening (1st colonoscopy) Post-op diagnosis:? Colon polyp, diverticulosis, hemorrhoids Endoscopist:? Armida Barker MD Anesthesia:?MAC Consent: Indications for the procedure and potential complications of bleeding, perforation, reaction to medications and missed diagnosis were discussed with the patient and informed consent was obtained. Instrument: Olympus PCF H 190 L variable stiffness pediatric colonoscope Monitoring: Vital signs and clinical assessment, intermittent blood pressure monitoring, continuous EKG monitoring, Pulse oximetry and Carbon Dioxide monitoring were done throughout the procedure. Please see anesthesia flowsheet. Colon withdrawl time was 17 minutes. Procedure: The patient was placed in the left lateral decubitis position and pre-procedure medications were administered. After a digital rectal examination of the ano-rectum, the video colonoscope was inserted into the rectum and advanced through the colon to the cecum. The colonoscope was slowly withdrawn in a retrograde panoramic fashion and the colon mucosa was carefully examined including a retroflexed view of the rectum. Findings and interventions are described below. Procedure Difficulty: Colon was long and tortuous and there was some loop formation. Findings: Terminal Ileum: Not evaluated Cecum: Normal Ascending Colon: Normal Transverse Colon: Normal Descending Colon: Normal Sigmoid Colon: A 2-3 mm diminutive appearing polyp -removed with cold biopsy Moderate diverticulosis Rectum: Normal Ano-rectum: Moderate internal hemorrhoids Colon preparation: Good Impression and Post Procedure Diagnosis: Colonoscopy Findings: One small polyp removed Moderate diverticulosis seen in the sigmoid colon Moderate hemorrhoids on retroflexed exam. Plan: Await pathology results Patient has an appointment on 01/05/23 in the GI Clinic with Dariana Yoon NP . Repeat Colonoscopy interval based on path results - in 5 years if polyps are adenomatous and 10 years if polyps are hyperplastic. (adult colonoscopy for future colonoscopies) Above findings were reviewed with the patient and colon polyps and diverticulosis handouts were given in the discharge area
[2022-12-21 13:27] VITALS: BP 101/69; PULSE 81; RESP 16; TEMP 36.8; O2SAT 97
[2022-12-21 13:40] VITALS: BP 99/63; PULSE 78; RESP 16; TEMP 36.4; O2SAT 98
== END 2022-12-21 14:00 | disposition home or self-care (01) ==
PROVIDERS: PCP Internal Medicine; Visit Provider Internal Medicine Gastroenterology
PROC: 0DJD8ZZ Inspection of Lower Intestinal Tract, Via Natural or Artificial Opening Endoscopic (ICD-10-PCS; CPT 45378; principal; 2022-12-21 13:30)
DX: Z12.11 Encounter for screening for malignant neoplasm of colon (principal); K63.5 Polyp of colon; K56.2 Volvulus; K57.30 Diverticulosis of large intestine without perforation or abscess without bleeding; K64.8 Other hemorrhoids; E78.00 Pure hypercholesterolemia, unspecified; R79.89 Other specified abnormal findings of blood chemistry; G47.00 Insomnia, unspecified
CPT/HCPCS: 45380; 88305; J2704

== ENCOUNTER → 2022-12-21 10:58 | Outpatient (BNV) | payer BC, SELFPAY | PROVIDERS: PCP Internal Medicine; Visit Provider Internal Medicine Gastroenterology | DX: Z12.11 Encounter for screening for malignant neoplasm of colon (principal); D12.5 Benign neoplasm of sigmoid colon; K57.30 Diverticulosis of large intestine without perforation or abscess without bleeding; K64.8 Other hemorrhoids | CPT/HCPCS: 45380 ==

== ENCOUNTER 2023-01-05 10:41 | Outpatient (AMB) | payer BC, SELFPAY ==
--- NOTE | 2023-01-05 10:43 | A.OFFVIS_ITS ---
Intake Vital Signs 01/05/23 11:08 Height 5 ft 9 in Weight 178 lb 2.136 oz BMI 26.3 BP 117/80 Blood Pressure Location Lt brachial Position Sitting Pulse 66 Intake Visit Reasons: s/p colon Mj Intake Note: Patient presents to in office visit today in colonoscopy follow up. CC: Patient underwent colonoscopy on 12/[address] Barker. Reports doing well denies any concerns today. Allergies No Known Allergies Allergy (Verified 01/05/23 11:10) HPI s/p colon Mj HPI Details Assessment & Plan (1) Pre-op examination: Code(s): Z01.818 - Encounter for other preprocedural examination Plan: This is his first colonoscopy He denies any bowel or upper GI problems. He is naive to anesthesia and sedation. He denies any cardiac or respiratory problems. No ID problems. His father had some sort of stomach cancer, he is unsure of the site. (2) Colon cancer screening: Code(s): Z12.11 - Encounter for screening for malignant neoplasm of colon Medications: New peg 3350-electroly gloria 236-22.74-6.74 -5.86 gram (Golyt rafael) until feca l effluent is tomy r; do not exceed a total volume of 2 ,000 mL 240 mL PO Q10M 4,0 00 mL 0RF 1 day Z12.11 - Encounter for screening for malignant neoplas m of colon COLONOSCOPY 12/21/22 Findings: Terminal Ileum: Not evaluated Cecum: Normal Ascending Colon: Normal Transverse Colon: Normal Descending Colon: Normal Sigmoid Colon: A 2-3 mm diminutive appearing polyp -removed with cold biopsy Moderate diverticulosis Rectum: Normal Ano-rectum: Moderate internal hemorrhoids Colon preparation: Good Impression and Post Procedure Diagnosis: Colonoscopy Findings: One small polyp removed Moderate diverticulosis seen in the sigmoid colon Moderate hemorrhoids on retroflexed exam. Plan: Await pathology results Patient has an appointment on 01/05/23 in the GI Clinic with Dariana Yoon NP . Repeat Colonoscopy interval based on path results - in 5 years if polyps are adenomatous and 10 years if polyps are hyperplastic. BIOPSY Received: 12/21/22 Diagnosis Colon, sigmoid, polypectomy: Colonic mucosa with mild surface hyperplastic changes; multiple additional levels examined TODAY'S VISIT Since the polyp was hyperplastic so the procedure will be repeated in 10 years. The procedure was well tolerated. The results were explained and the patient is agreeable to the follow-up interval as stated. The bowel pattern has returned to normal. Education was provided to tell any 1st degree relatives about their findings to be sure that they are screened by age 45. Educated that they will be put on a recall list when it is time for their repeat scope but should they move out of state or away from the hospital they will need to remember along with their primary to repeat the procedure in a timely fashion to avoid any adverse complications. [facility] Medical History Insomnia Overweight (BMI 25.0-29.9) Vitamin D deficiency Elevated LFTs Pure hypercholesterolemia Erectile dysfunction Surgical History (Updated 01/05/23 @ 11:11 by DMAIAN Hale) H/O colonoscopy Family History Mother Hypertension Social History Housing: House Alcohol intake: current Alcohol intake frequency: a few times a week Patient Tobacco Use Status: Never used Tobacco e-Cigarette/Vaping Use: Never Used Second Hand Smoke Exposure: No service: No Current occupational status: employed Cognitive needs: No Hearing needs: No Vision needs: Yes Review of Systems Const Denies fatigue, Denies fever(s), Denies night sweats, Denies poor appetite and Denies weight loss ENT Reports Normal hearing present, Denies dental pain, Denies dysphagia, Denies hearing loss, Denies mouth pain, Denies odynophagia, Denies throat swelling, Denies tongue swelling and Reports other (Dentition adequate) Card Reports no additional complaints Resp Reports no additional complaints GI Denies abdominal pain, Denies melena, Denies bloating, Denies hematochezia, Denies constipation, Denies GI cramping, Denies dysphagia, Denies excessive flatus, Denies early satiety, Denies heartburn, Denies diarrhea, Denies nausea, Denies odynophagia, Denies vomiting and Denies hematemesis Skin/Breast Denies pruritus, Denies lesions, Denies rash and Denies jaundice Neuro Reports Normal hearing present and Denies Abnormal speech present Endo Denies fatigue Aller/Immun Denies throat swelling and Denies tongue swelling Physical Exam Vital Signs: Last Vital Signs Pulse 66 01/05/23 11:08 BP 117/80 01/05/23 11:08 BMI result Body Mass Index 26.3 Const General: cooperative, no acute distress, well developed and well groomed Nutritional Appearance: average body habitus and well nourished Orientation/consciousness: oriented to person, oriented to place and oriented to time Limitations: No language barrier HEENT Head: Yes normocephalic and Yes atraumatic Eyes General: appearance normal, both eyes and all related structures Pupils: Equal, round and reactive pupils present Neck Neck: Yes normal visual inspection and Yes no lymphadenopathy Thyroid: Thyroid normal Resp Effort & Inspection: normal respiratory effort and able to speak in complete sentences Auscultation: clear to auscultation bilaterally Cardio Rate: regular rate Rhythm: regular rhythm Heart sounds: Normal, physiologic split S2 sound present Peripheral pulses: radial pulses present and posterior tibial pulses present GI Inspection: No distended and No Abdominal panniculus present Palpation (GI): Soft to palpation, nontender, no guarding, not rigid and No hepatosplenomegaly present Percussion: Yes normal to percussion Auscultation: normal bowel sounds Rectal Exam - Male: Yes deferred Skin General skin exam: no rashes or lesions noted, turgor normal, skin not dry, no jaundice, No spider nevi and no striae Rashes: no rashes Nails: normal Neuro General: oriented to person, oriented to place and oriented to time Cranial nerves: Yes Equal, round and reactive pupils present and Yes Normal hearing present Speech: No Abnormal speech present Extrem General: Yes normal to inspection, No clubbing, No cyanosis and No edema Psych Appearance: grossly normal and well kempt Mental Status: mental status grossly normal Speech and movement: Normal speech and movement present Affect: normal affect Attitude: cooperative Thought process: Normal thought process present and not confabulating Thought content: Normal thought content present Insight: Fair insight present (Psych) Judgement: Fair judgement present (Psych) Results Reviewed Results Reviewed: COLONOSCOPY 12/21/22 Findings: Terminal Ileum: Not evaluated Cecum: Normal Ascending Colon: Normal Transverse Colon: Normal Descending Colon: Normal Sigmoid Colon: A 2-3 mm diminutive appearing polyp -removed with cold biopsy Moderate diverticulosis Rectum: Normal Ano-rectum: Moderate internal hemorrhoids Colon preparation: Good Impression and Post Procedure Diagnosis: Colonoscopy Findings: One small polyp removed Moderate diverticulosis seen in the sigmoid colon Moderate hemorrhoids on retroflexed exam. Plan: Await pathology results Patient has an appointment on 01/05/23 in the GI Clinic with Dariana Yoon NP . Repeat Colonoscopy interval based on path results - in 5 years if polyps are adenomatous and 10 years if polyps are hyperplastic. BIOPSY Received: 12/21/22 Diagnosis Colon, sigmoid, polypectomy: Colonic mucosa with mild surface hyperplastic changes; multiple additional levels examined Assessment & Plan Assessment & Plan (1) Colon cancer screening: Code(s): Z12.11 - Encounter for screening for malignant neoplasm of colon Plan Since the polyp was hyperplastic so the procedure will be repeated in 10 years. The procedure was well tolerated. The results were explained and the patient is agreeable to the follow-up interval as stated. The bowel pattern has returned to normal. Education was provided to tell any 1st degree relatives about their findings to be sure that they are screened by age 45. Educated that they will be put on a recall list when it is time for their repeat scope but should they move out of state or away from the hospital they will need to remember along with their primary to repeat the procedure in a timely fashion to avoid any adverse complications. Coding Level of Care Code Est Pt Level 3 (63938) Diagnoses Colon cancer screening Z12.11
[2023-01-05 11:08] VITALS: BP 117/80; PULSE 66; BMI 26.3
== END 2023-01-05 11:26 | disposition home or self-care (01) ==
PROVIDERS: PCP Internal Medicine; Visit Provider Nurse Practitioner
DX: K63.5 Polyp of colon (principal); K64.8 Other hemorrhoids
CPT/HCPCS: 99213

== ENCOUNTER → 2023-01-05 10:41 | Outpatient (BNVA) | payer BC, SELFPAY | PROVIDERS: PCP Internal Medicine; Visit Provider Nurse Practitioner ==

== ENCOUNTER 2024-05-10 08:54 | Outpatient (AMB) | payer BC, SELFPAY ==
[2024-05-10 09:02] VITALS: BP 106/84; PULSE 75; O2SAT 96; BMI 28.6
--- NOTE | 2024-05-10 09:02 | MHC.PC.OV ---
Vital Signs 05/10/24 09:02 Height 5 ft 9 in Weight 193 lb 8 oz BMI 28.6 BP 106/84 Blood Pressure Location Lt brachial Position Sitting Pulse 75 Pulse Source Pulse Oximeter Pulse Oximetry (%) 96 Oxygen Delivery Method Room Air Intake Visit Reasons: PE and med review Financial Services Intern Required: No Accompanied by: Self / Same As Patient Allergies No Known Allergies Allergy (Verified 05/10/24 09:20) Medication List - Last Reconciled 05/10/24 by David Haas MD No Known Home Meds Tobacco use date assessed: 05/10/24 Dental Screening Dental Screen Date: 05/10/24 Did you have a dental visit in the last 12 months?: No Did you have a dental problem in the last 6 months where you did not have access to dental care?: No Was dental information given to patient?: No HPI PE and med review HPI Details Patient comes in today for his annual physical examination He was last seen here almost 2 years ago on 09/22/2022 Patient states that he feels well He denies any headaches or dizziness Denies any chest pains, no SOB No nausea/vomiting, no abdominal pain No change in bowel habits noted He denies any acute urinary symptoms He had his screening colonoscopy done on December [address] Barker - had a polyp removed that came out as hyperplastic on pathology so his next colonoscopy is recommended in 10 years [facility] Medical History (Updated 05/10/24 @ 09:40 by David Haas MD) Mixed hyperlipidemia Insomnia Overweight (BMI 25.0-29.9) Vitamin D deficiency Elevated LFTs Pure hypercholesterolemia Erectile dysfunction Surgical History (Updated 05/10/24 @ 09:24 by David Haas MD) H/O colonoscopy Family History Mother Hypertension Social History Housing: House Alcohol intake: current Alcohol intake frequency: a few times a week Patient Tobacco Use Status: Never used Tobacco e-Cigarette/Vaping Use: Never Used Second Hand Smoke Exposure: No service: No Current occupational status: employed Cognitive needs: No Hearing needs: No Vision needs: Yes Questionnaire PHQ-9 Over the last 2 weeks, how often have you been bothered by any of the following problems? 1. Little interest or pleasure in doing things: not at all 2. Feeling down, depressed, or hopeless: not at all 3. Trouble falling or staying asleep, or sleeping too much: not at all 4. Feeling tired or having little energy: not at all 5. Poor appetite or overeating: not at all 6. Feeling bad about yourself - or that you are a failure or have let yourself or your family down: not at all 7. Trouble concentrating on things, such as reading the newspaper or watching television: not at all 8. Moving or speaking so slowly that other people could have noticed. Or the opposite - being so fidgety or restless that you have been moving around a lot more than usual: not at all 9. Thoughts that you would be better off or of hurting yourself in some way: not at all Total score: 0 Depression Screening Interpretation: Negative Depression Screening Done: Yes 30835 - PHQ-9 Billing: Yes Source: Developed by Drs. Marcello Giraldo, Zoya Casas, Jose Maria Calderon and colleagues, with an educational angelika from [employer]. Thrive Questionnaire Date Thrive assessed: 05/10/24 I am a: Patient What is your living situation today?: I have a steady place to live Within the past 12 months, did the food you bought not last and you didn't have the money to get more?: Often true Within the past 12 months, did you worry whether your food would run out before you got money to buy more?: I choose not to answer this question Do you have trouble paying for medicines?: No Do you have trouble getting transportation to medical appointments?: No Do you have trouble paying your heating and electricity bill?: No Do you have trouble taking care of your child, family member or friend?: No Do you have trouble with day-to-day activities such as bathing, preparing meals, shopping, managing finances, etc.?: No Are you currently unemployed and looking for a job?: No Are you interested in more education?: No Please select the resources that you would like help with: None Currently or been in a relationship where the following occur: No concerns reported THRIVE Score: 1 AUDIT C Alcohol Use Questionnaire (AUDIT-C) 1. How often do you have a drink containing alcohol?: 2-4 times a month 2. How many drinks containing alcohol do you have on a typical day when you are drinking?: 1 or 2 3. How often do you have six or more drinks on one occasion?: Never Total Score: 2 Score Reviewed/Action Taken: Yes LYDIA-7 AMB Questionnaire LYDIA-7 Date LYDIA - 7 assessed: 05/10/24 Feeling nervous, anxious, or on edge: 0 = Not at all Not being able to stop or control worryin = Not at all Worrying too much about different things: 0 = Not at all Trouble relaxin = Not at all Being so restless that it is hard to sit still: 0 = Not at all Becoming easily annoyed or irritable: 0 = Not at all Feeling afraid as if something awful might happen: 0 = Not at all Total LYDIA-7 score (0-4 normal; 5-9 mild; 10-14 moderate; 15-21 severe): 0 Source: Developed by Drs. Marcello Giraldo, Zoya Casas, Jose Maria Calderon and colleagues, with an educational angelika from [employer]. Review of Systems Const Denies chills, Denies fatigue, Denies fever(s), Denies headache(s), Denies malaise and Denies weakness Eyes Denies blurry vision, Denies change in vision, Denies irritation and Denies itchy eyes ENT Denies dysphagia, Denies dizziness, Denies otalgia, Denies headache(s), Denies nasal congestion, Denies neck pain, Denies odynophagia and Denies sore throat Card Denies chest pain, Denies rapid heart rate, Denies irregular heart rhythm, Denies palpitations and Denies dyspnea Resp Denies chest congestion, Denies cough, Denies dyspnea and Denies wheezing GI Denies abdominal pain, Denies bloating, Denies constipation, Denies dysphagia, Denies heartburn, Denies diarrhea, Denies nausea, Denies odynophagia and Denies vomiting Denies hematuria, Denies difficulty urinating, Denies dysuria, Denies urinary frequency and Denies urinary urgency Musc Denies back pain, Denies arthralgias, Denies joint swelling, Denies muscle weakness and Denies neck pain Skin/Breast Denies change in pigmentation, Denies lesions, Denies rash and Denies unusual bruising Neuro Denies dizziness, Denies headache(s), Denies paresthesias and Denies weakness Endo Denies fatigue and Denies palpitations Aller/Immun Denies itchy eyes and Denies wheezing Physical exam (Primary Care) Vital Signs: Last Vital Signs Pulse 75 05/10/24 09:02 BP 106/84 05/10/24 09:02 Pulse Ox 96 05/10/24 09:02 Oxygen Delivery Method Room Air 05/10/24 09:02 BMI result Body Mass Index 28.6 Tobacco/Smoking Status: Tobacco use Status Tobacco use date assessed 05/10/24 05/10/24 09:12 Patient Tobacco Use Status Never used Tobacco 05/10/24 09:12 e-Cigarette/Vaping Use Never Used 05/10/24 09:12 PHQ-9: PHQ-9 Score PHQ-9: Total score 0 05/10/24 09:12 Depression Screening Interpretation: Negative Thrive Assessment: Date of Thrive Assessment Date Thrive assessed 05/10/24 05/10/24 09:12 Currently or been in a relationship where the following occur: No concerns reported Const General: no acute distress, alert and awake Orientation/consciousness: patient oriented x3 HENMT Head: Yes normocephalic and Yes atraumatic Ears: external ears normal, TM's normal bilaterally and EAC's normal General nose exam: No nasal discharge present Face and sinus: Yes normal facial exam and Yes sinuses nontender Teeth and gingiva: dentition normal Throat: Yes posterior oropharynx normal and Yes tonsils normal (no TP congestion) Eyes Eyelids: Yes eyelids normal Conjunctivae: conjunctivae normal Pupils: Equal, round and reactive pupils present EOM: EOMs intact bilaterally Neck Neck: Yes no lymphadenopathy and Yes supple Thyroid: Thyroid normal Resp Auscultation: clear to auscultation bilaterally, no rales and no wheezes Cardio Rate: regular rate Rhythm: regular rhythm Heart sounds: no murmurs GI Palpation (GI): Soft to palpation, nontender and No hepatosplenomegaly present Auscultation: normal bowel sounds General: Yes no CVA tenderness Back/Spine/Pelvis Back: no CVA tenderness Thoracic/Lumbar Spine: thoracic and lumbar spine normal to inspection Skin Lesions: no lesions Rashes: no rashes Neuro General: patient oriented x3, moves all extremities, no focal motor deficits and CN's II-XI intact bilaterally Cranial nerves: Yes Equal, round and reactive pupils present Cognition (Neuro): normal cognition Gait exam (Neuro): Normal gait present Extrem General: Yes no clubbing, cyanosis or edema Coding Level of Care Code Est Pt Prev Care 40-64y(13090) Diagnoses Annual physical exam Z00.00 Mixed hyperlipidemia E78.2 Elevated LFTs R79.89 Chronic right-sided headaches R51.9; G89.29 Vitamin D deficiency E55.9 Skin mole D22.9 Insomnia, unspecified type G47.00 Insomnia type: unspecified Overweight (BMI 25.0-29.9) E66.3 Additional Codes PHQ-9 - 14366 - PHQ-9 Billing: Yes ([id number]) Assessment & Plan Assessment & Plan (1) Annual physical exam: Code(s): Z00.00 - Encounter for general adult medical examination without abnormal findings Category: Medical Plan: Check labs Will also check his serum PSA level, per request He had his screening colonoscopy done on December [address] Barker - had a polyp removed that came out as hyperplastic on pathology so his next colonoscopy is recommended in 10 years (2032) (2) Mixed hyperlipidemia: Code(s): E78.2 - Mixed hyperlipidemia Category: Medical Plan: Reinforced low cholesterol diet His serum triglyceride level was still slightly elevated at 170 mg/dl when his cholesterol levels were last checked in 2022 Will recheck his fasting lipids for follow up (3) Elevated LFTs: Code(s): R79.89 - Other specified abnormal findings of blood chemistry Category: Medical Plan: This is most likely related to his weight His LFTs were normal when he last had his labs done back in 2022 Will recheck his LFTs for follow up and will continue to monitor his LFTs regularly (4) Chronic right-sided headaches: Code(s): R51.9 - Headache, unspecified; G89.29 - Other chronic pain Category: Medical Plan: Better controlled over the past couple of years He used to take Amitriptyline 25 mg Q HS for headaches prophylaxis and OTC Excedrin PRN for symptomatic relief but states that he has not had to take any medication in a while now Follow up with neurology as scheduled (5) Vitamin D deficiency: Code(s): E55.9 - Vitamin D deficiency, unspecified Category: Medical Plan: Will recheck his Vitamin D level for follow up (6) Skin mole: Comment: (+) hyperpigmented lesion/mole on the genital area Code(s): D22.9 - Melanocytic nevi, unspecified Category: Medical Plan: Per request, will make out referral to dermatology for further evaluation of the hyperpigmented mole that he has on his genital area States that he already has an appointment scheduled with [facility] later this month (7) Insomnia: Code(s): G47.00 - Insomnia, unspecified Category: Medical Qualifiers: Insomnia type: unspecified Qualified Code(s): G47.00 - Insomnia, unspecified Plan: Sleep hygiene reinforced Patient states that his main issue is waking up frequently in the middle of the night and thinks that this is mostly because he works second shift States that he has not had to take anything to help him sleep lately and prefers to avoid taking anything for sleep if he can avoid it (8) Overweight (BMI 25.0-29.9): Code(s): E66.3 - Overweight Category: Medical Plan: Reinforced diet/exercise as tolerated/lose weight Plan To return in 1 year for his next annual physical examination Orders: Orders Complete Blood Count Auto Diff Today D64.9 - Anemia, unspecified, Z00.00 - Encounter for general adult medical examination without abnormal findings Comprehensive [place]. Panel Fast Today E78.00 - Pure hypercholesterolemia, unspecified, Z00.00 - Encounter for general adult medical examination without abnormal findings Lipid Panel Today E78.00 - Pure hypercholesterolemia, unspecified, Z00.00 - Encounter for general adult medical examination without abnormal findings TSH reflex Free T4 Today E78.00 - Pure hypercholesterolemia, unspecified, Z00.00 - Encounter for general adult medical examination without abnormal findings Prostate Specific Antigen Today N40.0 - Benign prostatic hyperplasia without lower urinary tract symptoms, Z00.00 - Encounter for general adult medical examination without abnormal findings UA CC w/rflx Micro + Cult Today R30.0 - Dysuria, Z00.00 - Encounter for general adult medical examination without abnormal findings Vitamin D 25-OH Total Today E55.9 - Vitamin D deficiency, unspecified, Z00.00 - Encounter for general adult medical examination without abnormal findings Referrals Dermatology Referral D22.9 - Melanocytic nevi, unspecified
--- OUTSIDE RECORDS SUMMARY | 2024-05-10 09:36 | XMS_ITS | Clinical Summary ---
Author Organization [employer] Address [address] [place] [address] Care Team Providers Care Blending Tank Helper Name Role Phone Unavailable Primary Care Provider Unavailabl e Social History Tobacco Use Types Packs/Day Years Used Date Smoking Tobacco: Never Assessed Sex and Gender Information Value Date Recorded Sex Assigned at Male 12/08/2021 10:30 AM EDT Legal Sex Male 10:30 AM EDT Gender Identity Choose not to disclose 10:30 AM EDT Sexual Orientation Choose not to disclose 2021 10:30 AM EDT Plan of Treatment Health Maintenance Due Date Last Done Comments CT Colonography 1971 Colonoscopy 1971 Colorectal Cancer Screening 1971 Depression Screening 1971 FIT DNA/Cologuard 1971 FIT 1971 FOBT 1971 Lipid Panel 1971 Sigmoidoscopy 1971 Alcohol/Substance Use Screening 1983 Tobacco Screening 1983 Family Planning (PISQ) 10/16/1986 DTaP/Tdap/Td Vaccines (1 - Tdap) 10/16/1990 Hepatitis B Vaccines (1 of 3 - 19+ 3-dose series) 10/16/1990 Pneumococcal Vaccine: 50+ Ye ars (1 of 1 - PCV) 10/16/2021 Zoster Vaccines (1 of 2) 10/16/2021 COVID-19 Vaccine (2023-2 5 season) 2023 Influenza Vaccine (#1) 2023 RSV Patients and Pa tients Aged 60 years or older (1 - 1-dose 75+ series) 10/16/2046 HIB Vaccines Aged Out No longer eligi ble based on patient's age to complete this topic HPV Vaccines Aged Out No longer eligi ble based on patient's age to complete this topic Hepatitis A Vaccines Aged Out No long er eligible based on patient's age to complete this topic IPV Vaccines Aged Out No longer eligi ble based on patient's age to complete this topic Meningococcal Vaccine Aged Out No rosy sanaz eligible based on patient's age to complete this topic Pneumococcal Vaccine: Pediat rics (0 to 5 Years) and At-Risk Patients (6 to 49) Years) Aged Out No longer eligible b ased on patient's age to complete this topic RSV under 20 months Aged Out No longe r eligible based on patient's age to complete this topic Rotavirus Vaccines Aged Out No longer eligible based on patient's age to complete this topic
--- OUTSIDE RECORDS SUMMARY | 2024-05-10 09:36 | XMS_ITS | Encounter Summary ---
Author Organization [employer] [facility] Address [address] [place] [address] Care Team Providers Care Unscrambler Name Role Phone Unavailable Primary Care Provider Unavailabl e Encounter Details Date Type Department Care Team (Latest Contact Info) Description 11/21/2021 Abstract C CONVERSIONS Dental, Provider, DDS Social History Tobacco Use Types Packs/Day Years Used Date Smoking Tobacco: Never Assessed Sex and Gender Information Value Date Recorded Sex Assigned at Male 12/08/2021 10:30 AM EDT Legal Sex Male 10:30 AM EDT Gender Identity Choose not to disclose 10:30 AM EDT Sexual Orientation Choose not to disclose 2021 10:30 AM EDT documented as of this encounter Plan of Treatment Not on file documented as of this encounter Visit Diagnoses Not on filedocumented in this encounter
== END 2024-05-10 09:39 | disposition home or self-care (01) ==
LOC: HO.HMCH 08:55
PROVIDERS: PCP Internal Medicine; Visit Provider Internal Medicine
DX: Z00.00 Encounter for general adult medical examination without abnormal findings (principal); E78.2 Mixed hyperlipidemia; R79.89 Other specified abnormal findings of blood chemistry; R51.9 Headache, unspecified; G89.29 Other chronic pain; E55.9 Vitamin D deficiency, unspecified; D22.9 Melanocytic nevi, unspecified; G47.00 Insomnia, unspecified; E66.3 Overweight

== ENCOUNTER → 2024-05-10 08:54 | Outpatient (BNVA) | payer BC, SELFPAY | PROVIDERS: PCP Internal Medicine; Visit Provider Internal Medicine | DX: Z00.00 Encounter for general adult medical examination without abnormal findings (principal); E78.2 Mixed hyperlipidemia; R79.89 Other specified abnormal findings of blood chemistry; R51.9 Headache, unspecified; G89.29 Other chronic pain; E55.9 Vitamin D deficiency, unspecified; D22.9 Melanocytic nevi, unspecified; G47.00 Insomnia, unspecified; E66.3 Overweight; Z68.28 Body mass index [BMI] 28.0-28.9, adult | CPT/HCPCS: 96127 ==

== ENCOUNTER 2024-05-16 09:14 | Outpatient (REF) | payer BC, SELFPAY ==
[2024-05-16 09:27] LABS: MANUAL DIFF FLAG NO
--- OUTSIDE RECORDS SUMMARY | 2024-05-16 10:10 | XMS_ITS | Encounter Summary ---
Author Organization [employer] [facility] Address [address] [place] [address] Care Team Providers Care Wreath And Garland Maker Name Role Phone Unavailable Primary Care Provider Unavailabl e Encounter Details Date Type Department Care Team (Latest Contact Info) Description 11/21/2021 Abstract [facility] CONVERSIONS Dental, Provider, DDS Social History Tobacco [...]
--- OUTSIDE RECORDS SUMMARY | 2024-05-16 10:10 | XMS_ITS | Clinical Summary ---
Author Organization [employer] Address [address] [place] [address] Care Team Providers Care Art Preparator Name Role Phone Unavailable Primary Care Provider [...]
[2024-05-16 10:34] LABS: Appearance Urine Clear; Color Urine Yellow; Glucose Urine UA Negative (Negative); Leukocyte Esterase Urine Negative (Negative); Nitrite Urine Negative (Negative); PH 7.5 (5.0-9.0); Specific Gravity - Urine 1.015 (1.005-1.025); Urine Blood Negative (Negative); Urine Ketones Negative (Negative); Urine Protein Negative (Neg-Trace)
[2024-05-16 10:35] LABS: Hematocrit 42.1 % (42.0-52.0); Hemoglobin 14.3 g/dl (14.0-18.0); Mean Corpuscular Hemoglobin 27.7 pg (27.0-33.0); Mean Corpuscular Volume 81.4 fL (80.0-98.0); Mean Platelet Volume 9.9 fL (9.4-12.4); Neutrophils Percent Auto 56.2 % (45-73); Platelet Count 287 X10*3/uL (160-400); Red Blood Count 5.17 X10*6/uL (4.60-5.80); White Blood Count 5.2 X10*3/uL (4.8-10.8)
[2024-05-16 10:36] LABS: Basophils Absolute Auto 0.1 X10*3/uL (0.0-0.2); Eosinophils Absolute Auto 0.4 X10*3/uL (0.0-0.4); Eosinophils Percent Auto 7.1 % (0-4); Imm Gran Abs Auto 0.02 X10*3/uL (0.00-0.03); Imm Gran Pct Auto 0.4 % (0.0-0.4); Lymphocytes Absolute Auto 1.3 X10*3/uL (1.2-4.9); Lymphocytes Percent Auto 25.3 % (20-40); Monocytes Absolute Auto 0.5 X10*3/uL (0.1-1.2); Neutrophils Absolute Auto 2.9 x10*3/uL (2.0-8.3)
[2024-05-16 11:31] LABS: Prostate Specific Antigen 0.54 ng/mL (<0.05-4.0)
[2024-05-16 12:15] LABS: Alanine Aminotransferase 52 U/L (0-40); Anion Gap 13 (12-20); Aspartate Amino Transferase 44 U/L (5-37); Bilirubin Total 0.6 mg/dL (0.0-1.0); Blood Urea Nitrogen 20 mg/dL (9-16); Carbon Dioxide 24 mmol/L (22-29); Chloride 105 mmol/L (96-108); Cholesterol 213 mg/dL (<200); Estimated Glomerular Filt Rate > 60; Glucose Fasting 95 mg/dL (60-99); HDL Cholesterol 63 mg/dL (>40); LDL Cholesterol Calculated 123 mg/dL (<100); Potassium 3.9 mmol/L (3.3-5.1); Sodium 138 mmol/L (135-145); Total Protein 7.4 g/dL (6.5-8.0); Triglycerides 137 mg/dL (<150)
[2024-05-16 12:37] LABS: Alkaline Phosphatase 55 U/L (39-117); TSH reflex Free T4 1.68 uIU/mL (0.32-4.0); Vitamin D 25-OH Total 29.8 ng/mL (>30)
== END 2024-05-16 09:15 | disposition home or self-care (01) ==
LOC: HO.LAB 09:14
PROVIDERS: PCP Internal Medicine; Visit Provider Internal Medicine
DX: Z00.00 Encounter for general adult medical examination without abnormal findings (principal); E78.00 Pure hypercholesterolemia, unspecified; N40.0 Benign prostatic hyperplasia without lower urinary tract symptoms; D64.9 Anemia, unspecified; R30.0 Dysuria; E55.9 Vitamin D deficiency, unspecified; Z12.5 Encounter for screening for malignant neoplasm of prostate
CPT/HCPCS: 36415; 80053; 80061; 81003; 82306; 84153; 84443; 85025